=== PATIENT | male | born 1950 | race Hispanic/Latino ===

== ENCOUNTER 2021-11-24 00:02 | Emergency (ER) | payer MEDICARE ==
[2021-11-24 01:06] LABS: Basophils % (Auto) 0.5 % (0.0-1.8); Eosinophils # (Auto) 0.1 K/mm3 (0.0-0.4); Eosinophils % (Auto) 1.8 % (0.0-4.3); Hematocrit 39.4 % (35.5-45.6); Lymphocytes # (Auto) 1.3 K/mm3 (1.2-5.4); Lymphocytes % (Auto) 21.5 % (13.4-35.0); Mean Corpuscular HGB Conc 33 % (32-34); Mean Corpuscular Volume 88 fl (84-94); Monocytes # (Auto) 0.6 K/mm3 (0.0-0.8); Monocytes % (Auto) 10.7 % (0.0-7.3); Platelet Count 153 K/mm3 (140-440); Red Blood Count 4.51 M/mm3 (3.65-5.03); Red Cell Distribution Width 14.8 % (13.2-15.2)
[2021-11-24 01:23] LABS: BUN/Creatinine Ratio 27; Blood Urea Nitrogen 24 mg/dL (9-20); Calcium 9.3 mg/dL (8.4-10.2); Hemolysis Index 2
[2021-11-24] MEDS ORDERED: SODIUM CHLORIDE 0.9% 1000 ML 1,000 ML IV ONE (01:57)
[2021-11-24] MEDS ORDERED: INSULIN REGULAR, HUMAN 100 UNITS/1 ML IV ONE (01:57)
--- NOTE | 2021-11-24 02:15 | Emergency Department Report ---
<SLIME STARKEY - Last Filed: 11/24/21 05:51> ED General Adult HPI - General Chief complaint: Hyperglycemia Stated complaint: HIGH BLOOD SUGAR Time Seen by Provider: 11/24/21 00:27 Source: patient, EMS Mode of arrival: Stretcher Limitations: No Limitations - History of Present Illness Initial comments: 71-year-old male with a past medical history of elevated cholesterol, hypertension, chronic bladder problems/incontinence, and BPH presents to the hospital with complaints of hyperglycemia. Patient states glucose has been gr eater than 400 for past 6 hours. Patient currently takes metformin 1000 mg twice daily, unknown amount of glyburide, and Lantus 8 units once a day. Around 6 PM patient took a double dose of Lantus (16 units) due to hyperglycemia. Patient complains of mild upper respiratory symptoms of coughing and sneezing without fever, chest pain, shortness of breath, nausea, vomiting, diarrhea, or dysuria. Patient is accompanied by his who is also a patient Severity scale (0 -10): 8 - Related Data Previous Rx's Medication Instructions Recorded Last Taken Type Ondansetron [Zofran Odt] 4 mg PO Q8HR 5 Days #15 tab.rapdis 11/24/21 Unknown Rx NS cephALEXin [Keflex] 500 mg PO Q12HR 7 Days #14 cap NS 11/24/21 Unknown Rx Allergies Allergy/AdvReac Type Severity Reaction Status Date / Time No Known Allergies Allergy Unverified 11/24/21 00:32 ED Review of Systems Comment: All other systems reviewed and negative ED Past Medical Hx - Past Medical History Hx Diabetes: Yes - Medications Home Medications: Home Medications Medication Instructions Recorded Confirmed Last Taken Type Ondansetron [Zofran Odt] 4 mg PO Q8HR 5 Days #15 tab.rapdis 11/24/21 Unknown Rx NS cephALEXin [Keflex] 500 mg PO Q12HR 7 Days #14 cap NS 11/24/21 Unknown Rx ED Physical Exam - General Limitations: No Limitations - Other Other exam information: General: No acute distress Head: Atraumatic Eyes: normal appearance ENT: Moist mucous membranes Neck: Normal appearance, no midline tenderness Chest: Clear to auscultation bilaterally CV: Regular rate and rhythm Abdomen: Soft, normal bowel sounds, nontender, nondistended, no rebound or guarding Back: Normal inspection Extremity: Normal inspection, full range of motion Neuro: Alert O x 3, no facial asymmetry, speech clear, no gross motor sensory deficit Psych: Appropriate behavior Skin: No rash ED Course - Reevaluation(s) Reevaluation #1: 11/24/21 05:48 Still awaiting urine collection by nurse. Patient urinated in a trash can and urine was not collected. 11/24/21 05:51 pt did urinate at this time. Nurse to send sample to lab ED Medical Decision Making - Lab Data Result diagrams: 11/24/21 00:52 11/24/21 00:52 - Medical Decision Making 71-year-old male with history of diabetes presents to the hospital with hyperglycemia without DKA. Improved glucose to 78 after IV fluids and insulin. Plan to discharge home once we can obtain a urine to rule out infection as cause of his uncontrolled hyperglycemia. No signs of sepsis. Pt s/o Dr Bear to follow - Differential Diagnosis Hyperglycemia, DKA, infection, noncompliance Critical Care Time: No ED Disposition Clinical Impression: Hyperglycemia due to diabetes mellitus UTI (urinary tract infection) Qualifiers: Urinary tract infection type: site unspecified Hematuria presence: without hematuria Qualified Code(s): N39.0 - Urinary tract infection, site not specified Disposition: 01 HOME / SELF CARE / HOMELESS Is pt being admited?: No Does the pt Need Aspirin: No Condition: Stable Instructions: Urinary Tract Infection, Adult, [id number], Hyperglycemia, [id number], Diabetes Mellitus Type 2 in Adults (ED) Additional Instructions: Take the medication as prescribed. Follow-up with your doctor or doctor/clinic provided. Return if symptoms worsen as indicated by your discharge instructions. Increase your daily fluid to help your hydration Prescriptions: cephALEXin [Keflex] 500 mg PO Q12HR 7 Days #14 cap NS Ondansetron [Zofran Odt] 4 mg PO Q8HR 5 Days #15 tab.rapdis NS Referrals: KATYA MANUEL MD [Primary Care Provider] - 3-5 Days [facility] [Provider Group] - 3-5 Days <ENIO BEAR - Last Filed: 11/24/21 09:00> ED Review of Systems ROS: Stated complaint: HIGH BLOOD SUGAR Other details as noted in HPI ED Course Vital Signs 11/24/21 11/24/21 11/24/21 00:31 02:10 03:18 Temperature 99.0 F Pulse Rate 88 76 Respiratory 16 16 Rate Blood Pressure 107/51 125/61 [Left] O2 Sat by Pulse 99 96 96 Oximetry - Reevaluation(s) Reevaluation #2: 11/24/21 08:56 Pt signed out to me while waiting for her urinalysis-- she is been admitted to the ED with hyperglycemia and have been treated. UA now noted with large urine l eukocytes with lots of urine wbc-- concerning for UTI which likely contributed to her symptoms if not the culprit-- so will go ahead and add keflex 50mg BID x 7 days for her UTI. ED Medical Decision Making - Lab Data Result diagrams: 11/24/21 00:52 11/24/21 00:52 Critical care attestation.: If time is entered above; I have spent that time in minutes in the direct care of this critically ill patient, excluding procedure time. ED Disposition Is pt being admited?: No Does the pt Need Aspirin: No Time of Disposition: 09:00
[2021-11-24] MEDS ORDERED: ACETAMINOPHEN 325 MG TAB PO ONE (03:38)
[2021-11-24 06:22] LABS: Bilirubin,Urine NEG (Negative); Blood,Urine SM (Negative); Color,Urine Yellow (Yellow); Urobilinogen,Urine < 2.0 mg/dL (<2.0)
[2021-11-24 06:40] LABS: Bacteria,Urine 2+ /HPF (Negative); Mucus,Urine FEW /HPF; Renal Epithelial Cells,Urine 5 /LPF
[2021-11-24 07:30] LABS: WBC,Urine > 182.0 /HPF (0.0-6.0)
[2021-11-24 10:09] VITALS: BP 123/72
== END 2021-11-24 10:11 | disposition home or self-care (01) ==
LOC: ED 00:02
DX: E11.65 Type 2 diabetes mellitus with hyperglycemia (principal)
CPT/HCPCS: 36415; 80048; 81001; 82805; 85025; 96361; 96374; 99284; J7030; Q9967; J1815

== ENCOUNTER 2021-12-02 00:15 | Emergency (ER) | payer MEDICARE ==
[2021-12-02 00:32] VITALS: BP 122/62
[2021-12-02] MEDS ORDERED: SODIUM CHLORIDE 0.9% 1000 ML 1,000 ML IV ONE (01:40)
[2021-12-02 02:05] LABS: Basophils % (Auto) 0.5 % (0.0-1.8); Eosinophils # (Auto) 0.1 K/mm3 (0.0-0.4); Eosinophils % (Auto) 2.3 % (0.0-4.3); Hematocrit 37.2 % (35.5-45.6); Hemoglobin 12.6 gm/dl (11.8-15.2); Lymphocytes # (Auto) 1.5 K/mm3 (1.2-5.4); Lymphocytes % (Auto) 32.8 % (13.4-35.0); Mean Corpuscular HGB Conc 34 % (32-34); Mean Corpuscular Volume 87 fl (84-94); Monocytes # (Auto) 0.5 K/mm3 (0.0-0.8); Platelet Count 151 K/mm3 (140-440); Red Blood Count 4.31 M/mm3 (3.65-5.03); Red Cell Distribution Width 14.8 % (13.2-15.2)
[2021-12-02 02:21] LABS: Alanine Aminotransferase 17 units/L (7-56); Albumin 3.8 g/dL (3.9-5); Blood Urea Nitrogen 16 mg/dL (9-20); Calcium 9.5 mg/dL (8.4-10.2); Hemolysis Index 5
[2021-12-02 02:23] LABS: Bilirubin,Urine NEG (Negative); Blood,Urine SM (Negative); Color,Urine Straw (Yellow); Protein,Urine <15 mg/dL mg/dL (Negative); Urobilinogen,Urine < 2.0 mg/dL (<2.0)
[2021-12-02 02:27] LABS: Amphetamine Screen,Urine PRESUMPTIVE NEGATIVE; Benzodiazepines Screen,Urine PRESUMPTIVE NEGATIVE; Cannabinoid Screen,Urine PRESUMPTIVE NEGATIVE; Cocaine Screen,Urine PRESUMPTIVE NEGATIVE; Methadone Screen,Urine PRESUMPTIVE NEGATIVE; Opiate Screen,Urine PRESUMPTIVE NEGATIVE
[2021-12-02 02:27] LABS: BUN/Creatinine Ratio 23
[2021-12-02 02:44] LABS: Bacteria,Urine 1+ /HPF (Negative); Mucus,Urine FEW /HPF
[2021-12-02] MEDS ORDERED: INSULIN REGULAR, HUMAN 100 UNITS/1 ML IV ONE (02:49)
--- NOTE | 2021-12-02 05:05 | Emergency Department Report ---
ED General Adult HPI - General Chief complaint: Hyperglycemia Stated complaint: HIGH BLOOD SUGAR PUI?: No Time Seen by Provider: 12/02/21 01:30 Source: EMS Mode of arrival: Stretcher Limitations: No Limitations - History of Present Illness Initial comments: pt hyperglycemic today, pt takes both metformin and insulin, pt denies any s/s told EMS "I checked my blood sugar and it was high" pt admits that he cannot stop eating sugar -: days(s) Severity scale (0 -10): 0 Associated Symptoms: denies: denies other symptoms, confusion, chest pain - Related Data Previous Rx's Medication Instructions Recorded Last Taken Type Ondansetron [Zofran Odt] 4 mg PO Q8HR 5 Days #15 tab.rapdis 11/24/21 Unknown Rx NS cephALEXin [Keflex] 500 mg PO Q12HR 7 Days #14 cap NS 11/24/21 Unknown Rx Allergies Allergy/AdvReac Type Severity Reaction Status Date / Time No Known Allergies Allergy Unverified 11/24/21 00:32 ED Review of Systems ROS: Stated complaint: HIGH BLOOD SUGAR Other details as noted in HPI Constitutional: denies: chills, fever Eyes: denies: eye pain, eye discharge, vision change ENT: denies: ear pain, throat pain Respiratory: denies: cough, shortness of breath, wheezing Cardiovascular: denies: chest pain, palpitations Endocrine: no symptoms reported Gastrointestinal: denies: abdominal pain, nausea, diarrhea Genitourinary: denies: urgency, dysuria Musculoskeletal: denies: back pain, joint swelling, arthralgia Skin: denies: rash, lesions Neurological: denies: headache, weakness, paresthesias Psychiatric: denies: anxiety, depression Hematological/Lymphatic: denies: easy bleeding, easy bruising ED Past Medical Hx - Past Medical History Previous Medical History?: Yes Hx Diabetes: Yes - Surgical History Past Surgical History?: No - Social History Smoking Status: Unknown if ever smoked Substance Use Type: None - Medications Home Medications: Home Medications Medication Instructions Recorded Confirmed Last Taken Type Ondansetron [Zofran Odt] 4 mg PO Q8HR 5 Days #15 tab.rapdis 11/24/21 Unknown Rx NS cephALEXin [Keflex] 500 mg PO Q12HR 7 Days #14 cap NS 11/24/21 Unknown Rx ED Physical Exam - General Limitations: No Limitations General appearance: alert, in no apparent distress - Head Head exam: Present: atraumatic, normocephalic - Eye Eye exam: Present: normal appearance - ENT ENT exam: Present: mucous membranes moist - Neck Neck exam: Present: normal inspection - Respiratory Respiratory exam: Present: normal lung sounds bilaterally. Absent: respiratory distress - Cardiovascular Cardiovascular Exam: Present: regular rate, normal rhythm. Absent: systolic murmur, diastolic murmur, rubs, gallop - GI/Abdominal GI/Abdominal exam: Present: soft, normal bowel sounds - Rectal Rectal exam: Present: deferred - Extremities Exam Extremities exam: Present: normal inspection - Back Exam Back exam: Present: normal inspection - Neurological Exam Neurological exam: Present: alert, oriented X3 - Psychiatric Psychiatric exam: Present: normal affect, normal mood - Skin Skin exam: Present: warm, dry, intact, normal color. Absent: rash ED Course Vital Signs 12/02/21 00:16 Temperature 98.9 F Pulse Rate 80 Respiratory 18 Rate Blood Pressure 122/62 O2 Sat by Pulse 95 Oximetry ED Medical Decision Making - Lab Data Result diagrams: 12/02/21 01:51 12/02/21 01:51 - Medical Decision Making work up showed hyperglycemia without ketosis or acidosis insulin given BS is down to 122 Critical care attestation.: If time is entered above; I have spent that time in minutes in the direct care of this critically ill patient, excluding procedure time. ED Disposition Clinical Impression: Hyperglycemia Disposition: 01 HOME / SELF CARE / HOMELESS Is pt being admited?: No Does the pt Need Aspirin: No Condition: Stable
== END 2021-12-02 05:43 | disposition home or self-care (01) ==
LOC: ED 00:15
DX: I10 Essential (primary) hypertension (principal); Z79.899 Other long term (current) drug therapy
CPT/HCPCS: 36415; 80053; 80307; 81001; 82010; 82962; 84484; 85025; 87076; 87086; 87186; 96361; 96374; 99284; J7030; Q9967; J1815

== ENCOUNTER 2022-01-27 22:35 | Observation (INO) | payer MEDICARE ==
--- NOTE | 2022-01-28 00:58 | Emergency Department Report ---
ED General Adult HPI - General Chief complaint: Weakness Stated complaint: DIZZINESS/LOW BP Time Seen by Provider: 01/28/22 00:53 Source: patient, EMS ( EMS documentation not available at time of chart dictation ), RN notes reviewed, old records reviewed Mode of arrival: Stretcher Limitations: Physical Limitation - History of Present Illness Initial comments: The patient was evaluated in the emergency department for symptoms described in the history of present illness. He/she was evaluated in the context of the global COVID-19 pandemic, which necessitated consideration that the patient might be at risk for infection with the virus that causes COVID-19. Institutional protocols and algorithms that pertain to the evaluation of patients at risk for COVID-19 are in a state of rapid change based on information released by regulatory bodies including the CDC and federal and state organizations. These policies and algorithms were followed during the patient's care in the emergency department. Please note that these policies, procedures and recommendations changed on a rapid basis. This is a 71-year-old gentleman with a past medical history of hypertension, high cholesterol and diabetes, possible diabetic neuropathy, who presents to the department today with a complaint of weakness. He states that he feels unsteady on his feet for 1 week, and reportedly had low blood pressure. He denies physical pain. He denies headache, neck pain, chest pain, abdominal pain, vomiting, diarrhea and urinary symptoms. He does not believe he is having hematemesis or bright red blood per rectum. As per verbal report from nursing team, patient had blood pressure of 90s in the field. The patient feels like he is back to his baseline now, but reports that over the past week, when he walks, he feels like "my body is going one way, but my feet are going another way." -: days(s) Consistency: intermittent Improves with: rest Worsens with: movement - Related Data Home Medications Medication Instructions Recorded Confirmed Last Taken Baclofen [Lioresal] 10 mg PO TID 01/28/22 01/28/22 01/27/22 09:00 Duloxetine HCl 60 mg PO DAILY 01/28/22 01/28/22 01/27/22 09:00 Gabapentin [Neurontin] 800 mg PO TID 01/28/22 01/28/22 01/27/22 09:00 Glimepiride [Amaryl] 2 mg PO BID 01/28/22 01/28/22 01/27/22 09:00 Losartan/Hydrochlorothiazide 100 mg PO DAILY 01/28/22 01/28/22 01/27/22 09:00 [Losartan-Hctz 100-12.5 mg Tab] Omeprazole 40 mg PO DAILY 01/28/22 01/28/22 01/27/22 09:00 Pregabalin 150 mg PO BID 01/28/22 01/28/22 01/27/22 09:00 Simvastatin 20 mg PO DAILY 01/28/22 01/28/22 01/27/22 09:00 Tamsulosin [Flomax] 0.4 mg PO QDAY 01/28/22 01/28/22 01/27/22 09:00 amLODIPine 5 mg PO DAILY 01/28/22 01/28/22 01/27/22 09:00 metFORMIN XR [Glucophage XR] 1,000 mg PO BID 01/28/22 01/28/22 01/27/22 09:00 traZODone [Desyrel] 100 mg PO QHS 01/28/22 01/28/22 01/27/22 21:00 Allergies Allergy/AdvReac Type Severity Reaction Status Date / Time No Known Allergies Allergy Unverified 11/24/21 00:32 ED Review of Systems ROS: Stated complaint: DIZZINESS/LOW BP Other details as noted in HPI Constitutional: malaise. denies: fever Eyes: denies: eye discharge ENT: denies: congestion Respiratory: denies: cough Cardiovascular: edema. denies: chest pain Gastrointestinal: denies: abdominal pain, hematemesis, melena, hematochezia Genitourinary: denies: dysuria Musculoskeletal: myalgia Neurological: weakness, abnormal gait Hematological/Lymphatic: denies: easy bleeding ED Past Medical Hx - Past Medical History Hx Diabetes: Yes - Social History Smoking Status: Unknown if ever smoked Substance Use Type: None - Medications Home Medications: Home Medications Medication Instructions Recorded Confirmed Last Taken Type Baclofen [Lioresal] 10 mg PO TID 01/28/22 01/28/22 01/27/22 09:00 History Duloxetine HCl 60 mg PO DAILY 01/28/22 01/28/22 01/27/22 09:00 History Gabapentin [Neurontin] 800 mg PO TID 01/28/22 01/28/22 01/27/22 09:00 History Glimepiride [Amaryl] 2 mg PO BID 01/28/22 01/28/22 01/27/22 09:00 History Losartan/Hydrochlorothiazide 100 mg PO DAILY 01/28/22 01/28/22 01/27/22 09:00 History [Losartan-Hctz 100-12.5 mg Tab] Omeprazole 40 mg PO DAILY 01/28/22 01/28/22 01/27/22 09:00 History Pregabalin 150 mg PO BID 01/28/22 01/28/22 01/27/22 09:00 History Simvastatin 20 mg PO DAILY 01/28/22 01/28/22 01/27/22 09:00 History Tamsulosin [Flomax] 0.4 mg PO QDAY 01/28/22 01/28/22 01/27/22 09:00 History amLODIPine 5 mg PO DAILY 01/28/22 01/28/22 01/27/22 09:00 History metFORMIN XR [Glucophage XR] 1,000 mg PO BID 01/28/22 01/28/22 01/27/22 09:00 History traZODone [Desyrel] 100 mg PO QHS 01/28/22 01/28/22 01/27/22 21:00 History ED Physical Exam - General Limitations: Physical Limitation General appearance: alert, anxious, obese - Head Head exam: Present: atraumatic, normocephalic - Eye Eye exam: Present: normal appearance, EOMI. Absent: nystagmus - ENT ENT exam: Present: normal exam, normal orophraynx, mucous membranes moist, normal external ear exam - Neck Neck exam: Present: normal inspection, full ROM. Absent: tenderness, meningismus - Respiratory Respiratory exam: Present: decreased breath sounds. Absent: respiratory distress, wheezes, rales, rhonchi, stridor - Cardiovascular Cardiovascular Exam: Present: regular rate, normal rhythm, normal heart sounds. Absent: bradycardia, tachycardia, irregular rhythm, systolic murmur, diastolic murmur, rubs, gallop - GI/Abdominal GI/Abdominal exam: Present: soft, distended, normal bowel sounds, hernia. Absent: tenderness, guarding, rebound, rigid, pulsatile mass - Rectal Rectal exam: Present: normal inspection, normal rectal tone, heme (-) stool, other (Patient provides verbal consent for rectal examination. Chaperoned by nurse Oleksandr.). Absent: black stool, bloody stool, fecal impaction, hemorrhoids, prostate tenderness - Extremities Exam Extremities exam: Present: normal inspection, full ROM, pedal edema, other (2+ pulses noted in the bilateral upper and lower extremities. There is no palpable cord. negative Homans sign. Muscular compartments are soft. The pelvis is stable.). Absent: calf tenderness - Back Exam Back exam: Present: normal inspection. Absent: tenderness, CVA tenderness (R), CVA tenderness (L), paraspinal tenderness, vertebral tenderness - Neurological Exam Neurological exam: Present: alert, oriented X3, abnormal gait (Patient walks with a broad-based gait), other (There is no facial droop. The tongue is midline. EOMI. 5 out of 5 strength in the bilateral upper extremities. There is dysmetria in the bilateral upper extremities. There is pronator drift in the bilateral upper extremities). Absent: normal gait, motor sensory deficit - Psychiatric Psychiatric exam: Present: normal affect, normal mood - Skin Skin exam: Present: warm, dry, intact, normal color. Absent: rash ED Course Vital Signs 01/28/22 01/28/22 01/28/22 00:45 00:55 01:01 Temperature 97.6 F Pulse Rate 64 64 Respiratory 20 20 19 Rate Blood Pressure 107/50 Blood Pressure 107/50 [Right] O2 Sat by Pulse 96 99 98 Oximetry 01/28/22 01/28/22 01/28/22 01:11 01:15 01:31 Temperature Pulse Rate 66 57 L Respiratory 20 11 L 18 Rate Blood Pressure 106/56 104/65 Blood Pressure [Right] O2 Sat by Pulse 96 98 97 Oximetry - Reevaluation(s) Reevaluation #1: 01/28/22 02:05 Differential diagnosis, including but not limited to: Orthostasis, vagal event, structural cardiac disease, medication interaction, pneumonia, UTI, CHF, subacute stroke, diabetic neuropathy, diabetic ketoacidosis Assessment and plan: Elderly 71-year-old gentleman with complaint of weakness, dizziness, unsteady gait, history of hypotension. Here in the ER he is has an acceptable blood pressure. Chest x-ray with mild pulmonary vascularity, and he also has pulmonary vascular congestion on chest x-ray. His lung sounds are diminished. His neurologic symptoms have been present for 1 week. Therefore, tPA is contraindicated. Therefore, emergent CT angiogram head and neck not indicated. He does have evidence of mild volume overload, but given history of hypotension, would only administer minimal diuretics at this time. We will obtain appropriate laboratory studies. We will obtain noncontrast CT scan of the brain. Have requested that nursing team reconcile home medications. We will reassess. Anticipate admission to the medical service once initial diagnostics have resulted. 01/28/22 02:22 Labs reviewed and appreciated. Noncontrast CT scan of the brain negative for acute findings. Potassium supplementation ordered. Hospital physician, Dr. Brianda Guerrero to admit to [facility] ED Medical Decision Making - Lab Data Result diagrams: 01/28/22 01:12 01/28/22 01:12 Vital Signs 01/28/22 01/28/22 01/28/22 00:45 00:55 01:01 Temperature 97.6 F Pulse Rate 64 64 Respiratory 20 20 19 Rate Blood Pressure 107/50 Blood Pressure 107/50 [Right] O2 Sat by Pulse 96 99 98 Oximetry 01/28/22 01:11 Temperature Pulse Rate Respiratory 20 Rate Blood Pressure Blood Pressure [Right] O2 Sat by Pulse 96 Oximetry Lab Results 01/28/22 01/28/22 01/28/22 Range/Units 01:12 01:12 01:12 WBC 4.5 (4.5-11.0) K/mm3 RBC 4.10 (3.65-5.03) M/mm3 Hgb 12.2 (11.8-15.2) gm/dl Hct 36.5 (35.5-45.6) % MCV 89 (84-94) fl MCH 30 (28-32) pg MCHC 33 (32-34) % RDW 13.9 (13.2-15.2) % Plt Count 151 (140-440) K/mm3 Lymph % (Auto) 28.2 (13.4-35.0) % [place] % (Auto) 12.8 H (0.0-7.3) % Eos % (Auto) 2.3 (0.0-4.3) % Baso % (Auto) 0.7 (0.0-1.8) % Lymph # (Auto) 1.3 (1.2-5.4) K/mm3 [place] # (Auto) 0.6 (0.0-0.8) K/mm3 Eos # (Auto) 0.1 (0.0-0.4) K/mm3 Baso # (Auto) 0.0 (0.0-0.1) K/mm3 Seg Neutrophils % 56.0 (40.0-70.0) % Seg Neutrophils # 2.5 (1.8-7.7) K/mm3 PT 13.9 (12.2-14.9) Sec. INR 0.97 (0.87-1.13) VBG pH (7.320-7.420) Estimated GFR > 60 ml/min BUN/Creatinine Ratio 13 % Troponin T < 0.010 (0.00-0.029) ng/mL Albumin/Globulin Ratio 1.8 % Acetaminophen (10.0-30.0) ug/mL 01/28/22 01/28/22 Range/Units 01:12 01:12 WBC (4.5-11.0) K/mm3 RBC (3.65-5.03) M/mm3 Hgb (11.8-15.2) gm/dl Hct (35.5-45.6) % MCV (84-94) fl MCH (28-32) pg MCHC (32-34) % RDW (13.2-15.2) % Plt Count (140-440) K/mm3 Lymph % (Auto) (13.4-35.0) % [place] % (Auto) (0.0-7.3) % Eos % (Auto) (0.0-4.3) % Baso % (Auto) (0.0-1.8) % Lymph # (Auto) (1.2-5.4) K/mm3 [place] # (Auto) (0.0-0.8) K/mm3 Eos # (Auto) (0.0-0.4) K/mm3 Baso # (Auto) (0.0-0.1) K/mm3 Seg Neutrophils % (40.0-70.0) % Seg Neutrophils # (1.8-7.7) K/mm3 PT (12.2-14.9) Sec. INR (0.87-1.13) VBG pH 7.297 L (7.320-7.420) Estimated GFR ml/min BUN/Creatinine Ratio % Troponin T (0.00-0.029) ng/mL Albumin/Globulin Ratio % Acetaminophen 5.0 L (10.0-30.0) ug/mL Vital Signs 01/28/22 01/28/22 01/28/22 00:45 00:55 01:01 Temperature 97.6 F Pulse Rate 64 64 Respiratory 20 20 19 Rate Blood Pressure 107/50 Blood Pressure 107/50 [Right] O2 Sat by Pulse 96 99 98 Oximetry 01/28/22 01/28/22 01/28/22 01:11 01:15 01:31 Temperature Pulse Rate 66 57 L Respiratory 20 11 L 18 Rate Blood Pressure 106/56 104/65 Blood Pressure [Right] O2 Sat by Pulse 96 98 97 Oximetry Lab Results 01/28/22 01/28/22 01/28/22 Range/Units 01:12 01:12 01:12 WBC 4.5 (4.5-11.0) K/mm3 RBC 4.10 (3.65-5.03) M/mm3 Hgb 12.2 (11.8-15.2) gm/dl Hct 36.5 (35.5-45.6) % MCV 89 (84-94) fl MCH 30 (28-32) pg MCHC 33 (32-34) % RDW 13.9 (13.2-15.2) % Plt Count 151 (140-440) K/mm3 Lymph % (Auto) 28.2 (13.4-35.0) % [place] % (Auto) 12.8 H (0.0-7.3) % Eos % (Auto) 2.3 (0.0-4.3) % Baso % (Auto) 0.7 (0.0-1.8) % Lymph # (Auto) 1.3 (1.2-5.4) K/mm3 [place] # (Auto) 0.6 (0.0-0.8) K/mm3 Eos # (Auto) 0.1 (0.0-0.4) K/mm3 Baso # (Auto) 0.0 (0.0-0.1) K/mm3 Seg Neutrophils % 56.0 (40.0-70.0) % Seg Neutrophils # 2.5 (1.8-7.7) K/mm3 PT 13.9 (12.2-14.9) Sec. INR 0.97 (0.87-1.13) VBG pH (7.320-7.420) Sodium 140 (137-145) mmol/L Potassium 3.1 L (3.6-5.0) mmol/L Chloride 103.5 (98-107) mmol/L Carbon Dioxide 28 (22-30) mmol/L Anion Gap 12 mmol/L BUN 12 (9-20) mg/dL Creatinine 0.9 (0.8-1.3) mg/dL Estimated GFR > 60 ml/min BUN/Creatinine Ratio 13 % Glucose 84 (75-100) mg/dL Lactic Acid (0.7-2.0) mmol/L Calcium 9.0 (8.4-10.2) mg/dL Magnesium (1.7-2.3) mg/dL Total Bilirubin 0.50 (0.1-1.2) mg/dL AST 16 (5-40) units/L ALT 13 (7-56) units/L Alkaline Phosphatase 54 (35-129) units/L Total Creatine Kinase (55-170) units/L Troponin T < 0.010 (0.00-0.029) ng/mL NT-Pro-B Natriuret Pep (0-900) pg/mL Total Protein 6.1 L (6.3-8.2) g/dL Albumin 3.9 (3.9-5) g/dL Albumin/Globulin Ratio 1.8 % Salicylates (2.8-20.0) mg/dL Acetaminophen (10.0-30.0) ug/mL Plasma/Serum Alcohol (0-0.07) % 01/28/22 01/28/22 01/28/22 Range/Units 01:12 01:12 01:12 WBC (4.5-11.0) K/mm3 RBC (3.65-5.03) M/mm3 Hgb (11.8-15.2) gm/dl Hct (35.5-45.6) % MCV (84-94) fl MCH (28-32) pg MCHC (32-34) % RDW (13.2-15.2) % Plt Count (140-440) K/mm3 Lymph % (Auto) (13.4-35.0) % [place] % (Auto) (0.0-7.3) % Eos % (Auto) (0.0-4.3) % Baso % (Auto) (0.0-1.8) % Lymph # (Auto) (1.2-5.4) K/mm3 [place] # (Auto) (0.0-0.8) K/mm3 Eos # (Auto) (0.0-0.4) K/mm3 Baso # (Auto) (0.0-0.1) K/mm3 Seg Neutrophils % (40.0-70.0) % Seg Neutrophils # (1.8-7.7) K/mm3 PT (12.2-14.9) Sec. INR (0.87-1.13) VBG pH (7.320-7.420) Sodium (137-145) mmol/L Potassium (3.6-5.0) mmol/L Chloride (98-107) mmol/L Carbon Dioxide (22-30) mmol/L Anion Gap mmol/L BUN (9-20) mg/dL Creatinine (0.8-1.3) mg/dL Estimated GFR ml/min BUN/Creatinine Ratio % Glucose (75-100) mg/dL Lactic Acid 0.90 (0.7-2.0) mmol/L Calcium (8.4-10.2) mg/dL Magnesium (1.7-2.3) mg/dL Total Bilirubin (0.1-1.2) mg/dL AST (5-40) units/L ALT (7-56) units/L Alkaline Phosphatase (35-129) units/L Total Creatine Kinase (55-170) units/L Troponin T (0.00-0.029) ng/mL NT-Pro-B Natriuret Pep (0-900) pg/mL Total Protein (6.3-8.2) g/dL Albumin (3.9-5) g/dL Albumin/Globulin Ratio % Salicylates 7.4 (2.8-20.0) mg/dL Acetaminophen 5.0 L (10.0-30.0) ug/mL Plasma/Serum Alcohol (0-0.07) % 01/28/22 01/28/22 01/28/22 Range/Units 01:12 01:12 01:12 WBC (4.5-11.0) K/mm3 RBC (3.65-5.03) M/mm3 Hgb (11.8-15.2) gm/dl Hct (35.5-45.6) % MCV (84-94) fl MCH (28-32) pg MCHC (32-34) % RDW (13.2-15.2) % Plt Count (140-440) K/mm3 Lymph % (Auto) (13.4-35.0) % [place] % (Auto) (0.0-7.3) % Eos % (Auto) (0.0-4.3) % Baso % (Auto) (0.0-1.8) % Lymph # (Auto) (1.2-5.4) K/mm3 [place] # (Auto) (0.0-0.8) K/mm3 Eos # (Auto) (0.0-0.4) K/mm3 Baso # (Auto) (0.0-0.1) K/mm3 Seg Neutrophils % (40.0-70.0) % Seg Neutrophils # (1.8-7.7) K/mm3 PT (12.2-14.9) Sec. INR (0.87-1.13) VBG pH 7.297 L (7.320-7.420) Sodium (137-145) mmol/L Potassium (3.6-5.0) mmol/L Chloride (98-107) mmol/L Carbon Dioxide (22-30) mmol/L Anion Gap mmol/L BUN (9-20) mg/dL Creatinine (0.8-1.3) mg/dL Estimated GFR ml/min BUN/Creatinine Ratio % Glucose (75-100) mg/dL Lactic Acid (0.7-2.0) mmol/L Calcium (8.4-10.2) mg/dL Magnesium 1.90 (1.7-2.3) mg/dL Total Bilirubin (0.1-1.2) mg/dL AST (5-40) units/L ALT (7-56) units/L Alkaline Phosphatase (35-129) units/L Total Creatine Kinase 188 H (55-170) units/L Troponin T (0.00-0.029) ng/mL NT-Pro-B Natriuret Pep 25.54 (0-900) pg/mL Total Protein (6.3-8.2) g/dL Albumin (3.9-5) g/dL Albumin/Globulin Ratio % Salicylates (2.8-20.0) mg/dL Acetaminophen (10.0-30.0) ug/mL Plasma/Serum Alcohol < 0.01 (0-0.07) % - EKG Data -: EKG Interpreted by [place] EKG shows normal: sinus rhythm - EKG Data When compared to previous EKG there are: previous EKG unavailable (There is no prior EKG available for comparison) 01/28/22 02:02 The EKG is interpreted at 01: 00 AM This is a sinus rhythm, with a rate of 61 bpm. There is a leftward axis deviation. There are PVCs. Q waves noted in the inferior leads. There is poor R wave progression. There is low voltage in the lateral leads. This is an abnormal EKG. MT interval is 2 4 7 ms. The QTC is 4 1 7 ms. This EKG is not a STEMI. This is an abnormal EKG. - Radiology Data Radiology results: pending, report reviewed, image reviewed CHEST 1 VIEW 01/28/2022 12:11 AM INDICATION / CLINICAL INFORMATION: Weakness, history of chest pain. COMPARISON: None available. FINDINGS: SUPPORT DEVICES: None. HEART / MEDIASTINUM: Cardiomegaly LUNGS / PLEURA: Increased pulmonary vascularity. Mild interstitial prominence in bilateral lungs No pneumothorax. Signer Name: Paolo Deleon MD Signed: 01/28/2022 12:17 AM Workstation Name: [id number] [place] [id number] Cat Scan Report Signed Patient: MAHENDRA CAM MR#: [id number] 7 : 1950 Acct:[id number] Age/Sex: 71 / M ADM Date: 01/27/22 Loc: ED Attending Dr: Ordering Physician: HENRI MYRICK MD Date of Service: 01/28/22 Procedure(s): CT head/brain wo con Accession Number(s): [id number] cc: HENRI MYRICK MD CT HEAD WITHOUT CONTRAST INDICATION / CLINICAL INFORMATION: Unsteady gait for 1 week. TECHNIQUE: All CT scans at this location are performed using CT dose reduction for ALARA by means of automated exposure control. COMPARISON: None available. FINDINGS: No acute intracranial hemorrhage. Ventricles are normal in size without midline shift or mass effect. There is a sinuses are clear. No large territorial infarct is definitely seen. ADDITIONAL FINDINGS: None. IMPRESSION: 1. No acute intracranial abnormality. Signer Name: Paolo Deleon MD Signed: 01/28/2022 1:51 AM Workstation Name: [id number] Transcribed By: CW Dictated By: KIANNA DELEON MD Electronically Authenticated By: KIANNA DELEON MD Signed Date/Time: 01/28/22150 DD/ 9 TD/TT: Critical care attestation.: If time is entered above; I have spent that time in minutes in the direct care of this critically ill patient, excluding procedure time. ED Disposition Clinical Impression: Unsteady gait, Lower extremity edema, History of hypotension, Hypokalemia Disposition: ADMITTED INPATIENT Is pt being admited?: Yes Does the pt Need Aspirin: No Condition: Good
--- NOTE | 2022-01-28 01:21 | XRay Report ---
CHEST 1 VIEW 01/28/2022 12:11 AM INDICATION / CLINICAL INFORMATION: Weakness, history of chest pain. COMPARISON: None available. FINDINGS: SUPPORT DEVICES: None. HEART / MEDIASTINUM: Cardiomegaly LUNGS / PLEURA: Increased pulmonary vascularity. Mild interstitial prominence in bilateral lungs No p neumothorax. Signer Name: Paolo Deleon MD Signed: 01/28/2022 1:17 AM Workstation Name: [id number]
[2022-01-28 01:32] LABS: Basophils % (Auto) 0.7 % (0.0-1.8); Eosinophils # (Auto) 0.1 K/mm3 (0.0-0.4); Eosinophils % (Auto) 2.3 % (0.0-4.3); Hematocrit 36.5 % (35.5-45.6); Hemoglobin 12.2 gm/dl (11.8-15.2); Lymphocytes # (Auto) 1.3 K/mm3 (1.2-5.4); Lymphocytes % (Auto) 28.2 % (13.4-35.0); Mean Corpuscular HGB Conc 33 % (32-34); Mean Corpuscular Volume 89 fl (84-94); Monocytes # (Auto) 0.6 K/mm3 (0.0-0.8); Monocytes % (Auto) 12.8 % (0.0-7.3); Platelet Count 151 K/mm3 (140-440); Red Cell Distribution Width 13.9 % (13.2-15.2)
[2022-01-28 01:40] LABS: INR 0.97 (0.87-1.13)
[2022-01-28 01:52] LABS: Alanine Aminotransferase 13 units/L (7-56); Albumin 3.9 g/dL (3.9-5); BUN/Creatinine Ratio 13; Blood Urea Nitrogen 12 mg/dL (9-20); Hemolysis Index 3
--- NOTE | 2022-01-28 01:55 | Cat Scan Report ---
CT HEAD WITHOUT CONTRAST INDICATION / CLINICAL INFORMATION: Unsteady gait for 1 week. TECHNIQUE: All CT scans at this location are performed using CT dose reduction for ALARA by means of automated e xposure control. COMPARISON: None available. FINDINGS: No acute intracranial hemorrhage. Ventricles are normal in size without midline shift or mass effect. There is a sinuses are clear. No large territorial infarct is definitely seen. ADDITIONAL FINDINGS: None. IMPRESSION: 1. No acute intracranial abnormality. Signer Name: Paolo Deleon MD Signed: 01/28/2022 1:51 AM Workstation Name: [id number]
[2022-01-28] MEDS ORDERED: POTASSIUM CHLORIDE ER 20 MEQ TAB PO ONE (02:21)
[2022-01-28] MEDS ORDERED: FUROSEMIDE 20 MG TAB PO ONE (02:22)
[2022-01-28] MEDS ORDERED: ONDANSETRON 4 MG/2 ML INJ IV PRN ×3 (02:24→04:44)
[2022-01-28] MEDS ORDERED: MORPHINE 4 MG/1 ML INJ IV PRN ×3 (02:24→04:44)
[2022-01-28] MEDS ORDERED: ACETAMINOPHEN 325 MG TAB PO PRN ×3 (02:24→04:44)
[2022-01-28] MEDS ORDERED: MORPHINE 2 MG/1 ML INJ IV PRN ×3 (02:24→04:44)
[2022-01-28 03:06] LABS: Color,Urine Yellow (Yellow)
[2022-01-28] MEDS ORDERED: DEXTROSE 50% IN WATER (25GM) 50 ML SYRINGE IV PRN (04:44)
[2022-01-28] MEDS ORDERED: MAGNESIUM HYDROXIDE (MOM) ORAL LIQD UDC PO PRN ×2 (04:44)
[2022-01-28] MEDS ORDERED: PROMETHAZINE 25 MG RECT SUPP PR PRN (04:44)
[2022-01-28] MEDS ORDERED: METOCLOPRAMIDE 10 MG TAB PO PRN (04:44)
--- NOTE | 2022-01-28 05:06 | History and Physical Report ---
History of Present Illness Date of examination: 01/28/22 Date of admission: 01/28/22 02:24 Chief complaint: Dizziness Lower Extremity Edema History of present illness: 71-year-old male with significant history of hypertension, diabetes mellitus, hyperlipidemia presenting to the emergency room today complaining of dizziness and unsteady gait. Symptoms have been ongoing for about a week. He also indicates that he has had some low blood pressures. He denies any headache or dizziness and denies any diaphoresis. He denies any chest pain or shortness of breath. Patient denies any fever or chills, no nausea or vomiting and no abdominal pain. Work-up in the emergency room today, lab reveals hypokalemia of 3.1. CT scan of the head was negative. Chest x-ray reveals pulmonary vascular congestion. Patient being admitted for evaluation of his unsteady gait, hypotension and hypokalemia. Past History Past Medical History: diabetes, hypertension, hyperlipidemia Past Surgical History: No surgical history Social history: no significant social history Family history: no significant family history Medications and Allergies Allergies Allergy/AdvReac Type Severity Reaction Status Date / Time No Known Allergies Allergy Unverified 11/24/21 00:32 Home Medications Medication Instructions Recorded Confirmed Last Taken Type Baclofen [Lioresal] 10 mg PO TID 01/28/22 01/28/22 01/27/22 09:00 History Duloxetine HCl 60 mg PO DAILY 01/28/22 01/28/22 01/27/22 09:00 History Gabapentin [Neurontin] 800 mg PO TID 01/28/22 01/28/22 01/27/22 09:00 History Glimepiride [Amaryl] 2 mg PO BID 01/28/22 01/28/22 01/27/22 09:00 History Losartan/Hydrochlorothiazide 100 mg PO DAILY 01/28/22 01/28/22 01/27/22 09:00 History [Losartan-Hctz 100-12.5 mg Tab] Omeprazole 40 mg PO DAILY 01/28/22 01/28/22 01/27/22 09:00 History Pregabalin 150 mg PO BID 01/28/22 01/28/22 01/27/22 09:00 History Simvastatin 20 mg PO DAILY 01/28/22 01/28/22 01/27/22 09:00 History Tamsulosin [Flomax] 0.4 mg PO QDAY 01/28/22 01/28/22 01/27/22 09:00 History amLODIPine 5 mg PO DAILY 01/28/22 01/28/22 01/27/22 09:00 History metFORMIN XR [Glucophage XR] 1,000 mg PO BID 01/28/22 01/28/22 01/27/22 09:00 History traZODone [Desyrel] 100 mg PO QHS 01/28/22 01/28/22 01/27/22 21:00 History Active Meds: Active Medications Acetaminophen (Acetaminophen 325 Mg Tab) 650 mg PO Q4H PRN PRN Reason: Pain MILD(1-3)/Fever >100.5/RENE Acetaminophen (Acetaminophen 325 Mg Tab) 650 mg PO Q4H PRN PRN Reason: Pain MILD(1-3)/Fever >100.5/RENE Acetaminophen (Acetaminophen 325 Mg Tab) 650 mg PO Q4H PRN PRN Reason: Pain, Mild (1-3) Aspirin (Aspirin 325 Mg Tab) 325 mg PO QDAY FOR[facility]LY [facility], [facility]–1983 Atorvastatin Calcium (Atorvastatin 40 Mg Tab) 40 mg PO QHS FOR[facility], [facility]–1983 Bisacodyl (Bisacodyl 10 Mg Rect Supp) 10 mg NV QDAY PRN PRN Reason: Constipation Dextrose (Dextrose 50% In Water (25gm) 50 Ml Syringe) 50 ml IV Q30MIN PRN; Protocol PRN Reason: Hypoglycemia Furosemide (Furosemide 40 Mg/4 Ml Inj) 40 mg IV 0600,1800 [facility], [facility]–1983 Heparin Sodium (Porcine) (Heparin 5,000 Unit/1 Ml Vial) 5,000 unit SUB-Q Q8HR [facility], [facility]1983 Insulin Human Lispro (Insulin Lispro 100 Unit/Ml) 0 unit SUB-Q ACHS URBANO; Pr otocol Magnesium Hydroxide (Magnesium Hydroxide (Mom) Oral Liqd Udc) 30 ml PO Q4H PRN PRN Reason: Constipation Magnesium Hydroxide (Magnesium Hydroxide (Mom) Oral Liqd Udc) 30 ml PO Q4H PRN PRN Reason: Constipation Metoclopramide HCl (Metoclopramide 10 Mg Tab) 10 mg PO Q6H PRN PRN Reason: Nausea And Vomiting Morphine Sulfate (Morphine 2 Mg/1 Ml Inj) 2 mg IV Q4H PRN PRN Reason: Pain, Moderate (4-6) Morphine Sulfate (Morphine 4 Mg/1 Ml Inj) 4 mg IV Q4H PRN PRN Reason: Pain , Severe (7-10) Morphine Sulfate (Morphine 2 Mg/1 Ml Inj) 2 mg IV Q4H PRN PRN Reason: Pain, Moderate (4-6) Morphine Sulfate (Morphine 4 Mg/1 Ml Inj) 4 mg IV Q4H PRN PRN Reason: Pain , Severe (7-10) Ondansetron HCl (Ondansetron 4 Mg/2 Ml Inj) 4 mg IV Q8H PRN PRN Reason: Nausea And Vomiting Ondansetron HCl (Ondansetron 4 Mg/2 Ml Inj) 4 mg IV Q8H PRN PRN Reason: Nausea And Vomiting Ondansetron HCl (Ondansetron 4 Mg/2 Ml Inj) 4 mg IV Q8H PRN PRN Reason: Nausea And Vomiting Promethazine HCl (Promethazine 25 Mg Rect Supp) 25 mg NV Q6H PRN PRN Reason: Nausea And Vomiting Sodium Chloride (Sodium Chloride 0.9% 10 Ml Flush Syringe) 10 ml IV BID FOR[facility], [facility]1983 Last Admin: 01/28/22 02:31 Dose: 10 ml Sodium Chloride (Sodium Chloride 0.9% 10 Ml Flush Syringe) 10 ml IV PRN PRN PRN Reason: LINE FLUSH Sodium Chloride (Sodium Chloride 0.9% 10 Ml Flush Syringe) 10 ml IV BID [facility], [facility]1983 Sodium Chloride (Sodium Chloride 0.9% 10 Ml Flush Syringe) 10 ml IV PRN PRN PRN Reason: LINE FLUSH Sodium Chloride (Sodium Chloride 0.9% 10 Ml Flush Syringe) 10 ml INJ PRN PRN PRN Reason: LINE FLUSH Review of Systems Constitutional: no fever, no chills Ears, nose, mouth and throat: no nasal congestion, no sore throat Cardiovascular: no chest pain, no palpitations Respiratory: no cough, no shortness of breath Gastrointestinal: no abdominal pain, no nausea, no vomiting, no diarrhea Genitourinary Male: no dysuria, no hematuria, no flank pain Musculoskeletal: no neck pain, no low back pain Integumentary: no rash, no pruritis Neurological: no headaches, no confusion Psychiatric: no anxiety, no depression Endocrine: no polyphagia, no polydipsia, no polyuria, no nocturia Exam - Constitutional Vitals: Temp Pulse Resp BP Pulse Ox 97.6 F 57 L 18 104/65 97 01/28/22 00:45 01/28/22 01:31 01/28/22 01:31 01/28/22 01:31 01/28/22 01:31 General appearance: Present: no acute distress, well-nourished - EENT Eyes: Present: PERRL, EOM intact. Absent: scleral icterus ENT: hearing intact, clear oral mucosa, dentition normal - Neck Neck: Present: supple, normal ROM - Respiratory Respiratory effort: normal Respiratory: bilateral: diminished - Cardiovascular Rhythm: regular Heart Sounds: Present: S1 & S2. Absent: gallop, systolic murmur, diastolic murmur, rub, click - Extremities Extremities: no ischemia, pulses intact, pulses symmetrical, Full ROM Extremity abnormal: edema (2+ bilateral lower extremity edema) Peripheral Pulses: within normal limits - Abdominal General gastrointestinal: Present: soft, non-tender, non-distended, normal bowel sounds. Absent: mass - Integumentary Integumentary: Present: clear, warm, dry, normal turgor. Absent: rash - Musculoskeletal Musculoskeletal: strength equal bilaterally - Psychiatric Psychiatric: appropriate mood/affect, intact judgment & insight, memory intact, cooperative - Neurologic Neurologic: CNII-XII intact, no focal deficits, moves all extremities HEART Score - HEART Score Troponin: Troponin T < 0.010 ng/mL (0.00-0.029) 01/28/22 01:12 Results - Labs CBC & Chem 7: 01/28/22 01:12 01/28/22 01:12 Labs: Abnormal lab results 01/28/22 01/28/22 01/28/22 Range/Units 01:12 01:12 01:12 [place] % (Auto) 12.8 H (0.0-7.3) % VBG pH (7.320-7.420) Potassium 3.1 L (3.6-5.0) mmol/L Ammonia 19.0 L (25-60) umol/L Total Creatine Kinase (55-170) units/L Total Protein 6.1 L (6.3-8.2) g/dL Urine WBC (Auto) (0.0-6.0) /HPF Acetaminophen (10.0-30.0) ug/mL 01/28/22 01/28/22 01/28/22 Range/Units 01:12 01:12 01:12 [place] % (Auto) (0.0-7.3) % VBG pH 7.297 L (7.320-7.420) Potassium (3.6-5.0) mmol/L Ammonia (25-60) umol/L Total Creatine Kinase 188 H (55-170) units/L Total Protein (6.3-8.2) g/dL Urine WBC (Auto) (0.0-6.0) /HPF Acetaminophen 5.0 L (10.0-30.0) ug/mL 01/28/22 Range/Units Unknown [place] % (Auto) (0.0-7.3) % VBG pH (7.320-7.420) Potassium (3.6-5.0) mmol/L Ammonia (25-60) umol/L Total Creatine Kinase (55-170) units/L Total Protein (6.3-8.2) g/dL Urine WBC (Auto) 28.0 H (0.0-6.0) /HPF Acetaminophen (10.0-30.0) ug/mL Assessment and Plan Assessment: 1. Unsteady gait 2. Hypertension 3. Hypokalemia Plan: 1. Patient admitted and placed on telemetry. 2. We will schedule for carotid Doppler, echocardiogram and MRI of the brain. 3. We will request neurology evaluation and recommendations. 4. We will resume routine home medications and monitor vital signs closely. 5. Potassium will be repleted and will monitor chemistry. DVT Prophylaxis: SQ Heparin Code Status: Full Code
[2022-01-28] MEDS: FUROSEMIDE 40 MG/4 ML INJ IV SCH ×2 (06:16→20:01)
[2022-01-28] MEDS: HEPARIN 5,000 UNIT/1 ML VIAL SUB-Q SCH ×2 (06:16→13:17)
[2022-01-28] MEDS ORDERED: ASPIRIN 325 MG TAB PO SCH (10:00)
[2022-01-28] MEDS: INSULIN LISPRO 100 UNIT/ML SUB-Q SCH ×3 (10:46→18:00)
[2022-01-28 11:19] VITALS: BP 132/66
--- NOTE | 2022-01-28 12:14 | Vascular Lab Report ---
DUPLEX DOPPLER ULTRASOUND CAROTID, BILATERAL INDICATION / CLINICAL INFORMATION: stroke. COMPARISON: None available. FINDINGS: RIGHT CAROTID: Mild atherosclerotic plaque. - PLAQUE ESTIMATE (%): < 50% - CCA velocity: 104 cm/sec. - ICA peak systolic velocity: 92 cm/sec. - ICA/CCA PSV Ratio: Less than 2. Right Vertebral Artery: Antegrade flow. LEFT CAROTID: Mild atherosclerotic plaque. - PLAQUE ESTIMATE (%): < 50% - CCA velocity: 98 cm/sec. - ICA peak systolic velocity: 95 cm/sec. - ICA/CCA PSV Ratio: Less than 2. Left Vertebral Artery: Antegrade flow. IMPRESSION: 1. Right Internal Carotid Artery: Less than 50% diameter stenosis. 2. Left Internal Carotid Artery: Less than 50% diameter stenosis. Velocity criteria are extrapolated from diameter data as defined by the Society of Radiologists in Ul trasound Consensus Conference, Radiology 2003; 229;340-346. NO STENOSIS (NORMAL) - Plaque = none; ICA PSV < 125 cm/sec; ICA/CCA PSV Ratio < 2.0 <50% STENOSIS - Plaque < 50%; ICA PSV < 125 cm/sec; ICA/CCA PSV Ratio < 2.0 50-69% STENOSIS - Plaque > 50%; ICA PSV = 125-230 cm/sec; ICA/CCA PSV Ratio = 2.0-4.0 >70% BUT <100% STENOSIS - Plaque > 50%; ICA PSV > 230 cm/sec; ICA/CCA PSV Ratio > 4.0 NEAR OCCLUSION - Plaque = visible lumen; ICA PSV = high/low/none; ICA/CCA PSV Ratio = variable TOTAL OCCLUSION - Plaque = no lumen; ICA PSV = none; ICA/CCA PSV Ratio = N/A Scribed by: Dolores Tubbs RDMS, RVT, RMSKS Scribed: 01/28/2022 10:56 AM I have reviewed the images, agree with this report, and edited this report as needed. Signer Name: Mp Knapp MD Signed: 01/28/2022 12:10 PM Workstation Name: [email or web address]
--- NOTE | 2022-01-28 16:24 | Discharge Summary ---
Providers - Providers Date of Admission: 01/28/22 02:24 Date of discharge: 01/28/22 Attending physician: MARY SCHWARTZ 01/28/22 04:44 Consult to Physician [CONS] Routine Comment: Consulting Provider: PRATIBHA NEW Physician Instructions: Reason For Exam: unsteady gait 01/28/22 04:45 Consult to Dietitian/Nutrition [CONS] Routine Physician Instructions: Reason For Exam: Reason for Consult: Nutrition Recommendations Reason for Consult: Diet education Occupational Therapy Evaluate and Treat [CONS] Routine Comment: Reason For Exam: Neuro deficits Physical Therapy Evaluation and Treat [CONS] Routine Comment: Reason For Exam: Neuro deficits Primary care physician: KATYA MANUEL Hospitalization Condition: Good Hospital course: 71-year-old male with significant history of hypertension, diabetes mellitus, hyperlipidemia presenting to the emergency room today complaining of dizziness and unsteady gait. Symptoms have been ongoing for about a week. He also indicates that he has had some low blood pressures. He denies any headache or dizziness and denies any diaphoresis. He denies any chest pain or shortness of breath. Patient denies any fever or chills, no nausea or vomiting and no abdominal pain. Work-up in the emergency room today, lab reveals hypokalemia of 3.1. CT scan of the head was negative. Chest x-ray reveals pulmonary vascular congestion. Patient being admitted for evaluation of his unsteady gait, hypotension and hypokalemia. Patient was admitted for TIA . Work-up was negative Patient able to walk with normal unsteadiness. 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 CT was negative. Potassium 3.1 was repleted. Discharge diagnosis TIA Hypertension T2DM Peripheral neuropathy GERD Patient to continue home medications No changes were made in the home medications Disposition: 01 HOME / SELF CARE / HOMELESS Final Discharge Diagnosis (Prints w/discharge instructions): TIA. Hypokalemia. T2DM. Hypertension. Peripheral neuropathy. GERD - Discharge Diagnoses (1) TIA (transient ischemic attack) Status: Acute (2) Hypokalemia Status: Acute (3) Hypertension Status: Chronic Qualifiers: Hypertension type: primary hypertension Qualified Code(s): I10 - Essential (primary) hypertension (4) T2DM (type 2 diabetes mellitus) Status: Chronic Qualifiers: Diabetes mellitus rodent exterminator insulin use: without rodent exterminator use (5) GERD with apnea Status: Acute (6) GERD (gastroesophageal reflux disease) Status: Chronic Qualifiers: Esophagitis presence: without esophagitis Qualified Code(s): K21.9 - Gastro-esophageal reflux disease without esophagitis Comment: Continue PPIs in the form of omeprazole (7) DVT prophylaxis Status: Acute Core Measure Documentation - Palliative Care Palliative Care/ Comfort Measures: Not Applicable - Core Measures Any of the following diagnoses?: none Exam - Constitutional Vitals: Temp Pulse Resp BP Pulse Ox 97.8 F 76 17 132/66 98 01/28/22 10:40 01/28/22 10:40 01/28/22 10:40 01/28/22 10:40 01/28/22 10:40 General appearance: Present: no acute distress, well-nourished - EENT Eyes: Present: PERRL ENT: hearing intact, clear oral mucosa - Neck Neck: Present: supple, normal ROM - Respiratory Respiratory effort: normal Respiratory: bilateral: CTA - Cardiovascular Heart rate: 78 Rhythm: regular Heart Sounds: Present: S1 & S2. Absent: rub, click - Extremities Extremities: pulses symmetrical, No edema Peripheral Pulses: within normal limits - Abdominal General gastrointestinal: Present: soft, non-tender, non-distended, normal bowel sounds Male genitourinary: Present: normal - Integumentary Integumentary: Present: clear, warm, dry - Musculoskeletal Musculoskeletal: gait normal, strength equal bilaterally - Psychiatric Psychiatric: appropriate mood/affect, intact judgment & insight - Neurologic Neurologic: CNII-XII intact, moves all extremities Plan Activity: no restrictions Diet: low fat, low cholesterol, low salt Follow up with: KATYA MANUEL MD [Primary Care Provider] - 7 Days SANDRA GOODE MD [Referring] - 7 Days
--- NOTE | 2022-01-28 19:37 | Magnetic Resonance Report ---
MRI BRAIN 01/28/2022 INDICATION / CLINICAL INFORMATION: stroke, UNSTEADY GAIT. TECHNIQUE: Multiplanar, multisequence MR images of the brain were obtained. COMPARISON: None available. FINDINGS: BRAIN / INTRACRANIAL CONTENTS: Unenhanced MR images of the brain demonstrate no evidence of acute abn ormality. Ventricles and sulci are slightly prominent in size, consistent with normal age-related atrophic vizcaino ge. There is no evidence of acute ischemic injury, hemorrhage, or mass. There are no abnormal extra-axial fluid collections. EXTRACRANIAL: Unremarkable CRANIOCERVICAL JUNCTION: No significant abnormality. VASCULAR FLOW-VOIDS: No significant abnormality. IMPRESSION: No acute abnormality. Signer Name: Sherwin Shell MD Signed: 01/28/2022 7:33 PM Workstation Name: [id number]
--- NOTE | 2022-01-28 22:41 | Electrocardiograph Report ---
[facility] Test Date: 2022-01-28 Test Time: 00:57:24 Pat Name: MAHENDRA CAM Department: Room: A366 1 Gender: M Product Coordinator: ANA CRISTINA : 1950 Requested By: HENRI MYRICK Order Number: [id number] Reading MD: Cris Cabezas Measurements Intervals [place] Rate: 61 P: -8 CA: 247 QRS: -37 QRSD: 96 T: QT: 413 QTc: 417 Interpretive Statements Sinus rhythm Ventricular premature complex Prolonged CA interval Left axis deviation Nonspecific T abnormalities, lateral leads No previous ECG available for comparison Electronically Signed On 01-28-2022 22:41:35 EDT by Cris Cabezas
== END 2022-01-28 20:25 | disposition home or self-care (01) ==
LOC: ED 22:35 → 3A 01-28 02:24
PROVIDERS: ADMIT Internal Medicine Geriatric Medicine; ATTEND Internal Medicine
DX: G45.9 Transient cerebral ischemic attack, unspecified (principal); E87.6 Hypokalemia; I10 Essential (primary) hypertension; E11.9 Type 2 diabetes mellitus without complications; I95.9 Hypotension, unspecified; K21.9 Gastro-esophageal reflux disease without esophagitis; E78.5 Hyperlipidemia, unspecified; Z86.79 Personal history of other diseases of the circulatory system; R26.9 Unspecified abnormalities of gait and mobility; R60.0 Localized edema; R26.81 Unsteadiness on feet; R06.81 Apnea, not elsewhere classified; Z79.899 Other long term (current) drug therapy; Z98.890 Other specified postprocedural states; Z79.84 Long term (current) use of oral hypoglycemic drugs; Z86.72 Personal history of thrombophlebitis; Z79.4 Long term (current) use of insulin
CPT/HCPCS: 36415; 70450; 70551; 71045; 80053; 81001; 82140; 82270; 82550; 82805; 82962; 83735; 83880; 84443; 84484; 85025; 85610; 87086; 93005; 93880; 96372; 96374; 96376; 97161; 97165; 99285; C8929; G0378; J1644; J1940; 80320; 93306; Q9967; G0480; J1815